=== PATIENT | female | born 1980 | race Caucasian/White ===

== ENCOUNTER → 2024-12-02 | Outpatient (CLI) | payer OTHER ==
--- NOTE | 2024-12-02 11:44 | XR ---
EXAMINATION TYPE: XR finger LT DATE OF EXAM: 12/02/2024 11:15 AM COMPARISON: None CLINICAL INDICATION: Female, 44 years old with history of [id number] FOREIGN BODY THORN; YCH, pain TECHNIQUE: XR finger LT 3 views were obtained. FINDINGS: Normal alignment of the visualized joints. No acute osseous pathology is identified. No e vidence of soft tissue swelling. No significant degeneration or radiopaque foreign body. IMPRESSION: 1. No acute osseous pathology. 2. No radiopaque foreign body. [facility] Rosa Plummer, , 12/02/2024 11:41 AM
== END | disposition home or self-care (01) ==
LOC: RADXRYALE 11:04
PROVIDERS: ATTEND Nurse Practitioner Family
DX: M79.645 Pain in left finger(s) (principal)